=== PATIENT | female | born 1985 | race Asian ===

== ENCOUNTER → 2017-11-15 | Outpatient (CLI) | payer OTHER ==
--- NOTE | 2017-11-15 08:48 | DIAGNOSTIC IMAGING REPORT ---
R FOOT MIN 3 VIEWS ROUTINE HISTORY: 32 years-old Female M79.671 acute right foot pain with painful prominence within the region of the first metatarsal. COMPARISON: None available TECHNIQUE: 3 views of the right foot FINDINGS: Bipartite medial hallux sesamoid. No acute fracture, dislocation or significant degenerative changes. No stress fracture. Os peroneum noted. 8 mm Type II accessory navicular noted with associated prominent adjacent navicular tuberosity. IMPRESSION: 1. No acute fracture or dislocation. 2. Type II accessory navicular may account for the area of patient's reported symptomatology. The above report was generated using voice recognition software. It may contain grammatical, syntax or spelling errors. Electronically signed by: Jose Tirado M.D. 11/15/2017 8:46 AM Dictated Date/Time: 11/15/2017 8:42 AM
== END | disposition home or self-care (01) ==
LOC: C.RAD1850 08:18
PROVIDERS: ATTEND Family Medicine
DX: M79.671 Pain in right foot (principal)

== ENCOUNTER → 2017-12-24 | Outpatient (CLI) | payer OTHER | END | disposition home or self-care (01) | LOC: C.PAPS 14:26 | PROVIDERS: ATTEND Obstetrics & Gynecology | DX: Z12.4 Encounter for screening for malignant neoplasm of cervix (principal) ==